=== PATIENT | male | born 1965 | race Caucasian/White ===

== ENCOUNTER 2018-03-10 20:52 | Inpatient (IN) | payer OTHER ==
[~2018-03-10] VITALS: Ht 175.3 cm; Wt 110.7 kg
--- NOTE | 2018-03-10 21:02 | ED GI/GU/ABDOMINAL COMPLAINT ---
History of Present Illness General Chief Complaint: Abdominal Pain/Flank Pain Stated Complaint: UPPER ABD PAIN Source: patient Exam Limitations: no limitations Vital Signs & Intake/Output Vital Signs & Intake/Output Vital Signs Date Time Temp Pulse Resp B/P B/P Pulse O2 O2 Flow FiO2 Mean Ox Delivery Rate 03/11 2113 97.7 89 16 125/76 03/11 2018 97.7 89 125/76 03/11 1954 97.7 89 16 121/71 03/11 1947 97.7 89 121/71 03/11 1810 70 137/81 03/11 1247 96.9 70 135/84 03/11 1057 98.4 92 16 105/55 96 03/11 1053 98.4 86 20 158/96 96 03/11 0851 98.7 65 18 114/68 96 ED Intake and Output 03/12 0000 03/11 1200 Intake Total Output Total Balance Patient 244 lb Weight Allergies Coded Allergies: No Known Allergies (03/10/18) Reconcile Medications Aspirin (Ecotrin*) 81 MG TABLET.DR 1 TAB PO QAM HEART/BLOOD (Reported) Atenolol 50 MG TABLET 1 TAB PO QHS BP (Reported) Atorvastatin Calcium (Lipitor) 40 MG TABLET 1 TAB PO QPM CHOLESTEROL ( Reported) Clonazepam 1 MG TABLET 1 TAB PO BID ANXIETY (Reported) Fluoxetine HCl 40 MG CAPSULE 2 CAP PO QAM MENTAL HEALTH (Reported) Gabapentin 600 MG TABLET 1 TAB PO TID NERVE PAIN (Reported) Levothyroxine Sodium (Levoxyl) 50 MCG TABLET 1 TAB PO DAILY AC THYROID ( Reported) Metformin HCl 500 MG TABLET 1 TAB PO QAM DM (Reported) Prazosin HCl 2 MG CAPSULE 2 CAP PO QHS MENTAL HEALTH (Reported) Quetiapine Fumarate (Seroquel) 400 MG TABLET 2 TAB PO QHS MENTAL HEALTH ( Reported) Temazepam (Restoril) 30 MG CAPSULE 1 CAP PO QHS SLEEP (Reported) Triage Note: PT BIBA FROM HOME WITH C/O 9/10 MID UPPER ABD PAIN THAT STARTED 3 DAYS AGO AND HAS GOTTEN PROGRESSIVELY WORSE. SAW PCP FOR THE PAIN 2 DAYS AGO AND HAS BEEN TAKING TRAMADOL SINCE THEN WITH REPORTED NO EFFECT. PAIN GOT WORSE TODAY, PCP ADVISED HIM TO COME TO ED. REPROTS NAUSEA, NO VOMITING. DENEIS CP/SOB. DENIES CARDIAC HX. Triage Nurses Notes Reviewed? yes Onset: Gradual Duration: day(s): Timing: recent history Quality/Severity: severe Severity Numbers: 8 Location: left upper quadrant HPI: 52 y/o male with hx of anxiety, depression, HTN presents to the ED with complaints of abdominal pain since Wednesday. Pt states he ate salmon Wednesday night and went to his PCP Wednesday with thoughts of having possible food poisoning. Pt states the PCP gave him 20mg of Tramadol to take and said if the pain does not subside in a few days to then go to the ED. Pt states the pain is localized to the LUQ region and describes it as a sharp pain rating it at a 8/10 to sometimes even 10/10 on pain scale. There is no position that makes the pain better or worse. He states the pain has progressively been getting worse, even with prescription strength ibuprofen and tramadol. Pt also admits to having a "coca cola" colored urine this morning and a black looking stool. He has never had either of these symptoms before. Pt also states his girlfriend about 6 months ago and he has been having suicidal ideation ever since. He does admit that he has thought of a plan a few times but never went through with it. He denies any homicidal ideations or drug/alcohol use. Associated GI symptoms are N/D, low back pain, and 35 lb weight loss since November due to his new low carb diet. Pt denies dysuria, polyuria, constipation, CP, SOB, fever, chills, fatigue, or pain elsewhere. (Ne Asher) Past History Travel History Traveled to [place] past 21 day No Medical History Any Pertinent Medical History? 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 No (eN Asher) Review of Systems Review of Systems Constitutional: Reports: no symptoms. EENTM: Reports: no symptoms. Respiratory: Reports: no symptoms. Cardiovascular: Reports: no symptoms. GI: Reports: see HPI. Genitourinary: Reports: see HPI. Musculoskeletal: Reports: no symptoms. Skin: Reports: no symptoms. Neurological/Psychological: Reports: see HPI. Hematologic/Endocrine: Reports: no symptoms. Immunologic/Allergic: Reports: no symptoms. All Other Systems: Reviewed and Negative (Natalya [place],Ne Santiago) Physical Exam Physical Exam General Appearance: well developed/nourished, no apparent distress, alert, awake Head: atraumatic, normal appearance Eyes: Bilateral: normal appearance. Ears, Nose, Throat, Mouth: hearing grossly normal Neck: normal inspection, supple, full range of motion Respiratory: normal breath sounds, no respiratory distress, lungs clear Cardiovascular: regular rate/rhythm Gastrointestinal: normal bowel sounds, soft, no organomegaly, LUQ/epigastric tenderness Back: normal inspection, normal range of motion Extremities: normal range of motion Neurologic/Psych: awake, alert, oriented x 3 Skin: intact, normal color, warm/dry Core Measures ACS in differential dx? No Sepsis Present: No Sepsis Focused Exam Completed? No (Ne Asher) Progress Differential Diagnosis: bowel obstruction, diverticulitis, gastritis, hernia, inflamm bowel dis, pancreatitis, peptic ulcer, PUD/GERD, SBO, ureterolithiasis, UTI/pyelo, depression, suicidal ideation Plan of Care: Orders Procedure Date/time Status Regular Diet 03/12 B Active THYROID STIMULATING HORMONE 03/12 0600 Active THYROXINE 03/12 0600 Active LIPID PANEL 03/12 0600 Active GLYCOSYLATED HGB 03/12 0600 Active FREE T4 03/12 0600 Active Regular Diet 03/11 D Complete Patient Data - inpatient psych 03/11 1634 Active Admit to inpatient psych 03/11 1634 Active Vital Signs 03/11 1237 Active Inpt Psych Teach/Educate 03/11 1237 Active Nutritional Intake, Monitor 03/11 1237 Active Inpt Psych Auricular Acupunctu 03/11 1237 Active Admit to inpatient psych 03/11 1121 Active ED Holding Orders 03/11 1121 Active Code Status 03/11 1121 Active INIT HSP (30 MIN) 03/11 UNK Complete CIWA 03/11 UNK Active Activity/Ambulation 03/11 UNK Active Intake & Output 03/10 8917 Complete Current Medications Sig/Hillary Start time Last Medication Dose Stop Time Status Admin Clonazepam 1 MG 0800,1400 03/12 0800 AC (Klonopin 1MG Tab) 03/19 0759 Gabapentin 600 MG TID 03/11 2100 AC 03/11 (Neurontin) 2112 Prazosin HCl 4 MG AT BEDTIME 03/11 (Minipress 2 Mg.) 2112 Atenolol 50 MG 03/11 (Tenormin) 1953 Quetiapine Fumarate 800 MG 03/11 (Seroquel) 1951 Atorvastatin Calcium 40 MG 03/11 17003/11 (Lipitor) 172 Metformin HCl 500 MG 0800,03/11 17003/11 (Glucophage) 172 Lorazepam 2 MG Q1 NEEDED PRN 03/11 164 AC (Ativan) Lorazepam 1 MG Q1 NEEDED PRN 03/11 164 AC (Ativan) Levothyroxine Sodium 0.05 MG DAILY AC 03/11 0958 AC 03/12 (Synthroid) 0617 Aspirin 81 MG DAILY 03/11 0951 AC 03/11 (Aspirin) 1020 Famotidine 20 MG DAILY 03/11 0950 AC 03/11 (Pepcid) 1020 Fluoxetine HCl 80 MG DAILY 03/11 0950 AC 03/11 (Prozac) 1020 Laboratory Tests 03/12/18 0620: Hemoglobin A1c Pending, Triglycerides Pending, Cholesterol Pending, LDL Cholesterol, Calc Pending, HDL Cholesterol Pending, Cholesterol/HDL Ratio Pending, TSH Pending, Free T4 Pending, Thyroxine (T4) Pending 03/11/18 1634: Free T4 Cancelled No abnormal findings on patient CT scan to explain patient's left upper quadrant abdominal pain. Patient's labs are stable, H/H is stable, mild leukocytosis. Lipase is within normal limits, no acute pancreatitis. No evidence of UTI. Patient will likely require GI follow-up regarding his persistent pain. The patient was signed out to Dr. Oreilly pending crisis evaluation and disposition. Diagnostic Imaging: Viewed by Me: CT Scan. Discussed w/RAD: CT Scan. Radiology Impression: PATIENT: QAMAR ONOFRE PRESENT AGE: 52 PATIENT ACCOUNT NO: [id number] : 63 LOCATION: [facility] ORDERING PHYSICIAN: Ne [place] SERVICE DATE: 03/10/18 EXAM TYPE: CAT - CT ABD & PELVIS W IV CONTRAST EXAMINATION: CT ABDOMEN AND PELVIS WITH CONTRAST CLINICAL INFORMATION: Left lower quadrant pain. CVA tenderness. COMPARISON: None TECHNIQUE: Multidetector volumetric imaging was performed of the abdomen and pelvis following IV administration of 95 mL of Optiray 320 intravenous contrast. Sagittal and coronal reformatted images were obtained on the technologist's workstation. DLP: 1047.46 mGy-cm FINDINGS: LUNG BASES: The visualized lung bases are unremarkable. LIVER, GALLBLADDER, AND BILIARY TREE: The liver is normal in size, shape, and attenuation. No focal hepatic lesion or biliary ductal dilatation is present. The gallbladder is unremarkable with no evidence of radiopaque gallstones, gallbladder wall thickening, or obvious pericholecystic inflammatory changes. PANCREAS: Unremarkable. SPLEEN: Unremarkable. ADRENAL GLANDS: Unremarkable. KIDNEYS AND URETERS: The kidneys are normal in size, shape , and attenuation. No hydronephrosis, hydroureter, or calculi seen. No perinephric stranding. BLADDER: Unremarkable. GASTROINTESTINAL TRACT: The small and large bowel are unremarkable. The appendix is surgically absent. Mesentery: There is slight haziness of the mid mesentery. This could be chronic or related to mesenteritis but there is no lymphadenopathy. No inflammation. No free fluid. No free air. ABDOMINAL WALL: No significant hernia is appreciated. LYMPH NODES: Normal. VASCULAR: Unremarkable. PELVIC VISCERA: Unremarkable. OSSEOUS STRUCTURES : Unremarkable. There is linear soft tissue ossification along the fascial plane superficial to the right buttocks and adjacent to the left inferior sacroiliac joint. This is consistent with a chronic change. There is no mass or inflammation. IMPRESSION: No acute abnormality CT scan abdomen and pelvis. DICTATED BY: Herrera Mendenhall MD DATE/TIME DICTATED:03/10/182321 [facility] HOSPITALIST :FRANCO DATE/TIME TRANSCRIBED:03/10/182321 CONFIDENTIAL, DO NOT COPY WITHOUT APPROPRIATE AUTHORIZATION. <Electronically signed in Other Vendor System> SIGNED BY: Herrera Mendenhall MD 03/10/182331 Initial ED EKG: sinus rhythm @79bpm,PAC, nonspecific ST changes Hand-Off Endorsed To: Ziyad Oreilly MD Endorsed Time: 0100 Pending: consult (crisis) (Natalya [place],Ne Santiago) Hand-Off Endorsed To: Mario Bojorquez MD Endorsed Time: 0700 Pending: consult (Ziyad Oreilly MD) Comments: 03/11 1100 52-year-old male presents with abdominal pain. Workup is negative. The patient had a soft benign abdomen, nontender. He is requesting crisis counselor who have seen the patient. Presentation consistent with ACS or cardiopulmonary pathology. (Víctor LASSITER,[facility]) Departure Departure Disposition: STILL A PATIENT Condition: Stable Clinical Impression Primary Impression: Abdominal pain Qualifiers: Abdominal location: left upper quadrant Qualified Code: R10.12 - Left upper quadrant pain Secondary Impressions: Depression Qualifiers: Depression Type: unspecified Qualified Code: F32.9 - Major depressive disorder, single episode, unspecified Suicidal ideation Departure Forms: Customer Survey General Discharge Information (Natalya [place],Ne Santiago) Psych Admission Note Psychiatric Admission: I have seen and evaluated QAMAR ONOFRE. I have also reviewed all the pertinent lab results and diagnostic results. QAMAR ONOFRE will be admitted to our inpatient Psychiatric unit for treatment and care. PA/HEALTHCARE MANAGEMENT CONSULTANT Co-Sign Statement Statement: ED Attending supervision documentation- x I saw and evaluated the patient. I have also reviewed all the pertinent lab results and diagnostic results. I agree with the findings and the plan of care as documented in the PA's/HEALTHCARE MANAGEMENT CONSULTANT's documentation. [] I have reviewed the ED Record and agree with the PA's/HEALTHCARE MANAGEMENT CONSULTANT's documentation. [] Additions or exceptions (if any) to the PAs/HEALTHCARE MANAGEMENT CONSULTANT's note and plan are summarized below: [] (Ziyad Oreilly MD) PA/HEALTHCARE MANAGEMENT CONSULTANT Co-Sign Statement Statement: ED Attending supervision documentation- [] I saw and evaluated the patient. I have also reviewed all the pertinent lab results and diagnostic results. I agree with the findings and the plan of care as documented in the PA's/HEALTHCARE MANAGEMENT CONSULTANT's documentation. [x] I have reviewed the ED Record and agree with the PA's/HEALTHCARE MANAGEMENT CONSULTANT's documentation. [] Additions or exceptions (if any) to the PAs/HEALTHCARE MANAGEMENT CONSULTANT's note and plan are summarized below: [] (Reno LASSITER,Mario Wells) (Reno LASSITER,Mario Wells)
[2018-03-10 21:51] LABS: ABSOLUTE BASOPHIL COUNT 0 /CUMM (0.0-0.2); ABSOLUTE EOSINOPHIL COUNT 0.1 /CUMM (0.0-0.7); ABSOLUTE GRANULOCYTE CT 5.7 /CUMM (1.4-6.5); ABSOLUTE LYMPH COUNT 2.5 /CUMM (1.2-3.4); ABSOLUTE MONOCYTE COUNT 0.5 /CUMM (0.10-0.60); BASOPHIL % 0.5 % (0.0-2.0); EOSINOPHIL % 1.6 % (0-5); HEMATOCRIT 39.8 % (42-52); MEAN CORPUSCULAR HGB 29.1 PG (27.0-31.0); MEAN CORPUSCULAR HGB CONC 32.9 G/DL (33.0-37.0); MEAN CORPUSCULAR VOLUME 88.4 FL (80.0-94.0); MEAN PLATELET VOLUME 9.1 FL (7.4-10.4); PLATELET COUNT 201 /CUMM (130-400); RBC DISTRIBUTION WIDTH 12.9 % (11.5-14.5); RED BLOOD CELL CT 4.51 /CUMM (4.70-6.10); WHITE BLOOD CELL COUNT 8.9 /CUMM (4.8-10.8)
[2018-03-10] MEDS ORDERED: SEROQUEL400 M1 PO (22:35)
[2018-03-10] MEDS ORDERED: PRAZOSIN HCL2 M1 PO (22:36)
[2018-03-10] MEDS ORDERED: ATENOLOL50 M1 PO (22:36)
[2018-03-10] MEDS ORDERED: RESTORIL30 M1 PO (22:36)
[2018-03-10] MEDS ORDERED: CLONAZEPAM1 M2 PO (22:36)
[2018-03-10] MEDS ORDERED: LEVOXYL50 MCG PO (22:37)
[2018-03-10] MEDS ORDERED: GABAPENTIN600 M1 PO (22:37)
[2018-03-10] MEDS ORDERED: FLUOXETINE HCL40 M1 PO (22:37)
[2018-03-10] MEDS ORDERED: LIPITOR40 M1 PO (22:38)
[2018-03-10] MEDS ORDERED: METFORMIN HCL500 M3 PO (22:38)
[2018-03-10] MEDS ORDERED: ASPIRIN EC81 M1 PO (22:38)
--- NOTE | 2018-03-10 23:32 | CT SCAN REPORT ---
EXAMINATION: CT ABDOMEN AND PELVIS WITH CONTRAST CLINICAL INFORMATION: Left lower quadrant pain. CVA tenderness. COMPARISON: None TECHNIQUE: Multidetector volumetric imaging was performed of the abdomen and pelvis following IV administration of 95 mL of Optiray 320 intravenous contrast. Sagittal and coronal reformatted images were obtained on the technologist's workstation. DLP: 1047.46 mGy-cm FINDINGS: LUNG BASES: The visualized lung bases are unremarkable. LIVER, GALLBLADDER, AND BILIARY TREE: The liver is normal in size, shape, and attenuation. No focal hepatic lesion or biliary ductal dilatation is present. The gallbladder is unremarkable with no evidence of radiopaque gallstones, gallbladder wall thickening, or obvious pericholecystic inflammatory changes. PANCREAS: Unremarkable. SPLEEN: Unremarkable. ADRENAL GLANDS: Unremarkable. KIDNEYS AND URETERS: The kidneys are normal in size, shape, and attenuation. No hydronephrosis, hydroureter, or calculi seen. No perinephric stranding. BLADDER: Unremarkable. GASTROINTESTINAL TRACT: The small and large bowel are unremarkable. The appendix is surgically absent. Mesentery: There is slight haziness of the mid mesentery. This could be chronic or related to mesenteritis but there is no lymphadenopathy. No inflammation. No free fluid. No free air. ABDOMINAL WALL: No significant hernia is appreciated. LYMPH NODES: Normal. VASCULAR: Unremarkable. PELVIC VISCERA: Unremarkable. OSSEOUS STRUCTURES: Unremarkable. There is linear soft tissue ossification along the fascial plane superficial to the right buttocks and adjacent to the left inferior sacroiliac joint. This is consistent with a chronic change. There is no mass or inflammation. IMPRESSION: No acute abnormality CT scan abdomen and pelvis.
--- NOTE | 2018-03-11 09:51 | ED PSYCH CRISIS CONSULTATION ---
Crisis Consult Basic Assessment Date of Consult: 03/11/18 Responsible Person/Accompanied By: self Insurance Authorization: Insurance #1: [facility] Phone number: Policy number: [id number] Group number: Authorization number: ED Provider: Patient's ED Provider: Ne Asher Primary Care Physician: Patient's PCP: Magdiel Chino MD PCP's Current Psychiatrist: [facility] Chief Complaint: Psychiatric Related Complaint Patient's Quote: "I recently lost my gf of 7 years suddenly" Present Illness: Pt is a 52 year old single domiciled male self presenting to the ED initially with abdominal pain and then reported SI to ED staff. Pt states he recently (9 months ago) lost his girlfriend of 7 years after she from complications related to pneuomia. He states she was on life support and within 1 week of being diagnosed with pneumonia. Pt states he and his gf were living in [place] together and he moved up here 6 months ago to be with her family and her ashes, which are burried here in [place]. He states has been hospitalized 2x psychiatrically after his gf (1x in [place] and most recently at [facility] 1 month ago). His discharge plan from [facility] was [place]'s [facility]. Pt states he attended IOP for the 1st time on Wednesday. He does not think going to [place] by bus is reasonable for him as he takes the bus. He states he took him 3 hours to get to [place] from [place] by bus , IOP lasts 3 hours, then another 3 hours to get back home. He states this is exhausting and too much for anyone to have to do to get treatment. Currently, pt states he thinks about suicide daily over the last month. He reports he wants to be to be with his girlfriend. He has thought about drinking a bottle of tequila to pass out, stepping in front of a train, and tying belts to a ceiling fan to hang himself. It is unclear what prevents him from acting on these thoughts. He did mention that he finds comfort at [facility]. He was going to [facility] 3-4 times per week but this [facility] is now closed for 2 months for renovations. He is socially isolated- he lives alone, no longer attends [facility] and doesn't want to "bother" his girlfriend's family. He thinks that since one of the girlfriend's famiy members gave him an apartment to live in for free, he shouldn't be asking for any more help. Pt has a long psychiatric history recieving treatment in [place] and [place] prior to living in [place]. Pt had prior substance abuse issues with Alcohol and no longer has issues with alochol at this time. Last drink was Mother's day- 1 glass of wine. Crisis consulted with Dr. Mercedes, distribution operations manager psychiatrist. Pt is being admitted to [facility] voluntarily for SI and the inability to create a safety plan outside the hospital. Patient's Address: [address] [place] [address] Other Phone Number: Who Do You Live With? Patient/Self Family/Informants Interviewed: no family/collateral ID'd Allergies - Coded Allergies: No Known Allergies (03/10/18) Current Medications - Scheduled Medications Aspirin (Ecotrin*) 81 MG TABLET.DR 1 TAB PO QAM HEART/BLOOD (Reported) Entered as Reported by Yenifer Plascencia on 03/10/182237 Atenolol 50 MG TABLET 1 TAB PO QHS BP (Reported) Entered as Reported by Yenifer Plascencia on 03/10/182235 Atorvastatin Calcium (Lipitor) 40 MG TABLET 1 TAB PO QPM CHOLESTEROL ( Reported) Entered as Reported by Yenifer Plascencia on 03/10/182237 Clonazepam 1 MG TABLET 1 TAB PO BID ANXIETY (Reported) Entered as Reported by Yenifer Plascencia on 03/10/182235 Fluoxetine HCl 40 MG CAPSULE 2 CAP PO QAM MENTAL HEALTH (Reported) Entered as Reported by Yenifer Plascencia on 03/10/182236 Gabapentin 600 MG TABLET 1 TAB PO TID NERVE PAIN (Reported) Entered as Reported by Yenifer Plascencia on 03/10/182236 Levothyroxine Sodium (Levoxyl) 50 MCG TABLET 1 TAB PO DAILY AC THYROID ( Reported) Entered as Reported by Yenifer Plascencia on 03/10/182236 Metformin HCl 500 MG TABLET 1 TAB PO QAM DM (Reported) Entered as Reported by Yenifer Plascencia on 03/10/182237 Prazosin HCl 2 MG CAPSULE 2 CAP PO QHS MENTAL HEALTH (Reported) Entered as Reported by Yenifer Plascencia on 03/10/182235 Quetiapine Fumarate (Seroquel) 400 MG TABLET 2 TAB PO QHS MENTAL HEALTH ( Reported) Entered as Reported by Yenifer Plascencia on 03/10/182234 Temazepam (Restoril) 30 MG CAPSULE 1 CAP PO QHS SLEEP (Reported) Entered as Reported by Yenifer Plascencia on 03/10/182235 Laboratory Results: Laboratory Tests 03/10/18 2357: Lactic Acid Cancelled 03/10/18 224: Urine Opiates Screen < 100, Methadone Screen 45, Barbiturate Screen < 60, Ur Phencyclidine Scrn < 6.00, Amphetamines Screen < 100, U Benzodiazepines Scrn 146 , Urine Cocaine Screen < 50, Urine Cannabis Screen < 5.00, Urine Color YEL, Urine Clarity CLEAR, Urine pH 6.0, Ur Specific [place] 1.025, Urine Protein NEG, Urine Ketones NEG, Urine Nitrite NEG, Urine Bilirubin NEG, Urine Urobilinogen 0.2, Ur Leukocyte Esterase NEG, Ur Microscopic EXAM NOT REQUIRED, Urine Hemoglobin NEG, Urine Glucose NEG 03/10/18 2140: Anion Gap 12, Estimated GFR > 60, BUN/Creatinine Ratio 22.5, Glucose 105 H, Lactic Acid 1.0, Calcium 9.9, Total Bilirubin 0.3, AST 23, ALT 33, Alkaline Phosphatase 74, Troponin I < 0.01, Total Protein 7.4, Albumin 4.3, Globulin 3.1, Albumin/Globulin Ratio 1.4, Lipase 232, CBC w Diff NO MAN DIFF REQ, RBC 4.51 L, MCV 88.4, MCH 29.1, MCHC 32.9 L, RDW 12.9, MPV 9.1, Gran % 64.0, Lymphocytes % 27.7, Monocytes % 6.2, Eosinophils % 1.6, Basophils % 0.5, Absolute Granulocytes 5.7, Absolute Lymphocytes 2.5, Absolute Monocytes 0.5, Absolute Eosinophils 0.1, Absolute Basophils 0, Serum Alcohol < 10.0 03/10/182134: Serum Alcohol Cancelled Past History Past Medical History Neurological: NEUROPATHY EENT: NONE Cardiovascular: hypertension, hyperlipidemia Respiratory: NONE Gastrointestinal: NONE Hepatic: NONE Renal: NONE Musculoskeletal: NONE Psychiatric: depression, OCD, per pt, PTSD, per pt Endocrine: hypothyroidism Blood Disorders: NONE Cancer(s): NONE 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 Physical Limitations (Interventions): none Psychiatric Treatment History Psych Treatment Psychiatric Treatment Yes Inpatient Treatment Yes Outpatient Treatment Yes Location of Treatment - [facility]; [facility] - [place] started 03/09 Reason for Treatment SI, Depression Dates of Treatment [facility]- 1 month ago, started IOP Wednesday Response to Treatment fair, pt states the distance is too far to continue with his current IOP in [place] Diagnosis by History: Depression OCD PTSD Alcohol Use Disorder Substance Use/Abuse History Drug Use/Abuse 1 Substances Used/Abused Yes Substance Used/Abused Alcohol First Use 12 Last Used December 2017 How much used/taken 1 glass of wine How often not very often For how long pt used to have a problem w/ ETOH Route of use oral Drug Use/Abuse 2 Substances Used/Abused Yes Substance Used/Abused Nicotine Last Used 03/10/18 How much used/taken 4-5 cigarettes per day How often daily For how long years on and off Route of use inhalation Drug Use/Abuse 3 Substances Used/Abused Yes Substance Used/Abused Cocaine Last Used late 20s Drug Use/Abuse 4 Substances Used/Abused Yes Substance Used/Abused Prescribed Opiates Last Used 6 years ago For how long pt reports he had an issue with prescribed opiates 6 year ago Substance Abuse Treatment Substance Abuse Treatment Past Substance Abuse TX Yes Inpatient Treatment Yes Outpatient Treatment Yes Location of Treatment [place] Reason for Treatment etoh abuse Dates of Treatment years ago Response to Treatment Pt reports he did well because it was a residential IOP then he transferred to a [facility] for 6 months then went to sober living Current Mental Status Mental Status Orientation: Person, Place, Situation Affect: Sad Speech: WNL Neuro-vegetative: Anhedonia, Appetite Decreased, Concentration Poor, Energy Decreased, Helpless, Sleep Disturbance Appearance Appearance- Dress/Hygiene: Pt presents in hospital scrubs Pt pointed out scars on his elbows from 6 previous surgeries for nueropathy Behaviors Thought Process: WNL Thought Content: WNL Memory: WNL Insight: Fair SI/HI Risk Assessment Past Suicidal Ideation/Attempts Yes Current Suicidal Ideation/Att Yes Past Homicidal Ideation/Att: No Current Homicidal Ideation/Attempts No Degree of Intent: Thoughts/No Intent Danger To: Self Risk Factors: SA/MH hospitalized, lives alone, male, limited support Lethality Ratin PTSD Checklist PTSD Done? patient declined ED Management Sitter: Yes Restraints: No DSM5/PS Stressors/Medical Prob Diagnosis' (DSM 5, Stressors, Medical): F32.9 Unspecified Depressive Disorder OCD, per patient PTSD, per patient Stressors: girlfriend 9 months ago, unemployed on disability Medical: Hypertension, hyperlipimedia Current GAF: 22 Departure Disposition Psych Medical Clearance Date: 03/11/18 Medically Cleared at: 0810 Time Started: 0810 Time Ended: 0840 Psychiatrist Consulted: Roma Mercedes MD Date Disposition Established: 03/11/18 Time Disposition Established: 1030 Plan for Disposition - Modality: Inpatient Psychiatry Facility: [facility] Rationale for Disposition: Pt presents with SI- plans to overdose with tequila, jump in front of a train or hang himself with belts from a ceiling fan in his living room. Pt is unable to contract for safety. Type of IP Admission: Voluntary Referrals Magdiel Chino MD (PCP/Family)
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
[2018-03-11 12:47] VITALS: BP 135/84
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
--- NOTE | 2018-03-11 14:01 | CPS PROVIDER INIT ASMT PSYCH ---
Psychiatric Admission Special Police Officer's Note Reviewed: Yes Patient Seen and Examined: Yes Identifying Information: Patient is a 52-year-old single white male. Chief Complaint: "I recently lost my girlfriend of 7 years suddenly." Reaction to Hospitalization: Patient was admitted voluntarily History of Present Illness Onset of Illness: The patient was admitted to about a month ago and he was discharged from with a plan to attend intensive outpatient program at [place]. The patient reported that he has been doing the intensive outpatient program at [facility]. He has been finding that it has been very demanding and stressful because he has to take the bus from [place] although it to [facility] IOP program he reports that it takes him approximately 3 hours to get to [place] from [place] in the IOP lasts 3 hours then 3 hours to get back home because of the bus schedule. Circumstances Leading to Admission: Increasing depression and thoughts of suicide Problem(s) Justifying Need for Admission: Thoughts of suicide Past Psychiatric History Past Diagnosis(es)- if any: Major depressive disorder, OCD, posttraumatic stress disorder, alcohol use disorder Past Precipitating Factors- if any: Alcohol use and loss of his girlfriend suddenly after a quick illness with pneumonia - Include inpatient and outpatient treatment Treatment History: Patient was receiving the treatment while he was in [place]. Patient moved up from [place] to [place] about 6 months ago. The patient was admitted to about a month ago and that did the intensive outpatient program since. History of Suicide Attempts or Gestures Patient denied Substance Abuse History: History of alcohol use disorder Allergies: Coded Allergies: No Known Allergies (03/10/18) Home Med List: Patient was on 800 mg of Seroquel Aspirin (Ecotrin*) 81 MG TABLET. 1 TAB PO QAM HEART/BLOOD (Reported) Entered as Reported by Yenifer Plascencia on 03/10/182237 Atenolol 50 MG TABLET 1 TAB PO QHS BP (Reported) Entered as Reported by Yenifer Plascencia on 03/10/182235 Atorvastatin Calcium (Lipitor) 40 MG TABLET 1 TAB PO QPM CHOLESTEROL ( Reported) Entered as Reported by Yenifer Plascencia on 03/10/182237 Clonazepam 1 MG TABLET 1 TAB PO BID ANXIETY (Reported) Entered as Reported by Yenifer Plascencia on 03/10/182235 Fluoxetine HCl 40 MG CAPSULE 2 CAP PO QAM MENTAL HEALTH (Reported) Entered as Reported by Yenifer Plascencia on 03/10/182236 Gabapentin 600 MG TABLET 1 TAB PO TID NERVE PAIN (Reported) Entered as Reported by Yenifer Plascencia on 03/10/182236 Levothyroxine Sodium (Levoxyl) 50 MCG TABLET 1 TAB PO DAILY AC THYROID ( Reported) Entered as Reported by Yenifer Plascencia on 03/10/182236 Metformin HCl 500 MG TABLET 1 TAB PO QAM DM (Reported) Entered as Reported by Yenifer Plascencia on 03/10/182237 Prazosin HCl 2 MG CAPSULE 2 CAP PO QHS MENTAL HEALTH (Reported) Entered as Reported by Yenifer Plascencia on 03/10/182235 Quetiapine Fumarate (Seroquel) 400 MG TABLET 2 TAB PO QHS MENTAL HEALTH ( Reported) Entered as Reported by Yenifer Plascencia on 03/10/182234 Temazepam (Restoril) 30 MG CAPSULE 1 CAP PO QHS SLEEP - Include any medical condition(s) that may - impact the patient's recovery/remission Past Medical History: He sees he said he has borderline diabetes. He has hypothyroidism Past History Medical History Neurological: NEUROPATHY EENT: NONE Cardiovascular: hypertension, hyperlipidemia Respiratory: NONE Gastrointestinal: NONE Hepatic: NONE Renal: NONE Musculoskeletal: chronic back pain, disk herniation Psychiatric: depression, insomnia, substance abuse, OCD, per pt PTSD, per pt Endocrine: hypothyroidism, BORDERLINE DM 2 Blood Disorders: NONE Cancer(s): NONE PLASTICS NURSE/Reproductive: NONE History of MRSA: No History of VRE: No History of CDIFF: No Isolation History: Standard Surgical History Surgical History: appendectomy, cholecystectomy Psychiatric Family/Social Hx Family History Psychiatric Illness: Unexplored Substance Use: unexplored Suicides: unexplored Social History Living Situation: Please see the biopsychosocial assessment by MANAGER RECRUITMENT Significant Relationships (family/friends): Please see the biopsychosocial assessment by MANAGER RECRUITMENT Education: Please see the biopsychosocial assessment by MANAGER RECRUITMENT Vocation/Occupation: Please see the biopsychosocial assessment by MANAGER RECRUITMENT Legal: Please see the biopsychosocial assessment by MANAGER RECRUITMENT Healthly Behaviors Screening Tobacco Screening Tobacco Use from ED Docu: Current Not Daily - If tobacco counseling indicated - the following topics are required. - #1 Recognizing dangerous situations. - #2 Coping Skills. - #3 Basic information about quitting. Status of Tobacco Cessation Counseling: #1, #2 AND #3 Completed Cessation Med Status Nicotine Gum Ordered Alcohol Screening - ETOH screen POS if BAL >=80 or Audit-C>= M4/F3 Audit-C Score from Diag Assess: 1 Blood Alcohol Level: Laboratory Tests 03/10 03/10 2135 2140 Toxicology Serum Alcohol (<10 MG/DL) Cancelled < 10.0 Alcohol Use Screening Results: Neg per Audit C &/or BAL - If ETOH counseling indicated - the following topics are required. - #1 Express concern about the patient's - drinking at unhealthy levels, include informing - of national norms for moderate drinking: - men <= 14 drinks/week, max 4 drinks/occasion - women <= 7 drinks/week, max 3 drinks/occasion - #2 Providing feedback, including linking alcohol to - negative physical effects (liver injury, hypertension) - negative emotional effects (relationship problems and - depression) - negative occupational consequences (reduced work - performance) - #3 Advising the patient to abstain from alcohol or - to drink below national norms for moderate drinking - (as listed above). Status of ETOH Use Counseling: N/A B/C NO ETOH Use Metabolic Screening - Screen if on a Neuroleptic Medication - Metabolic screening should include: - Blood Pressure, BMI, Glucose or Hgb A1c, & a - Lipid profile from within the past 365 days. Metabolic Screening Patient on a neuroleptic(s) . Enter below results for Hemoglobin A1C, and lipid panel if obtained during the last 365 days. BMI: 36.000 Blood Pressure: 135/84 Laboratory Results From [facility] (If applicable): Lab work ordered Exam and Plan Mental Status Examination Ambulation Status: Steady gait Appearance: Unremarkable appearance Attitude towards examiner: , Cooperative Psychomotor activity: Normal psychomotor activity Behavior: No abnormal behaviors Quality of speech: Normal speech, not pressured, not slurred Affect: Constricted affect Mood: Reported mood is depressed Suicidal Ideation: Reported on and off thoughts of suicide Homicidal Ideation: Denied thoughts of violence or homicide Hallucinations: Denied hallucinations Paranoid/Delusional Material: Denied feeling paranoid, there were no delusions Difficulties with thought organization: Denied difficulties with thought organization Insight: Seems to have partial insight Judgment: Seems to have reasonable judgment in hypothetical situations Orientation: He was alert and oriented to time, place, and person. Cognition: Did not seem to have difficulties with information processing. Memory Function: Did not have any difficulties with short-term memory. Estimate of intellectual functioning: Average Assets/Strengths Patient Identified Assets/Strengths: Patient is intelligent, motivated, and has supportive family Impression/Plan Impression and Plan: 52-year-old single white male who was admitted because of increasing depression and thoughts of suicide. - Include all active medical diagnosis that require tx DSM 5 Diagnosis(es): Unspecified depressive disorder Obsessive-compulsive disorder Posttraumatic stress disorder Alcohol use disorder - Initial Tx Plan for Active Psych & Medical Conditions Treatment Plan: Inpatient psychiatric care with safety checks every 15 minutes Resume all medications as per his outpatient providers at [facility] intensive outpatient program. - Factors that would help patient function - in a less restrictive setting. Factors: The patient will be discharge if he has 2 consecutive days without any thoughts of suicide
[2018-03-11 18:10] VITALS: BP 137/81
--- NOTE | 2018-03-11 19:05 | History & Physical ---
General Information and HPI MD Statement: I have seen and personally examined QAMAR ONOFRE and documented this H&P. The patient is a 52 year old M who presented with a patient stated chief complaint of "I recently lost my girlfriend of 7 years suddenly". Source of Information: patient Exam Limitations: no limitations History of Present Illness: 52 year old male came to the emergency room initially complaining of abdominal pain (work up was negative) and then reported SI to the ED staff. He has been hospitalized twice in [facility]. after the girl friend one in [place] one in [facility], one month ago went to [facility]. Patient thinks about suicide every day, feels socally isolated. Allergies/Medications Allergies: Coded Allergies: No Known Allergies (03/10/18) Home Med list Aspirin (Ecotrin*) 81 MG TABLET.DR 1 TAB PO QAM HEART/BLOOD (Reported) Atenolol 50 MG TABLET 1 TAB PO QHS BP (Reported) Atorvastatin Calcium (Lipitor) 40 MG TABLET 1 TAB PO QPM CHOLESTEROL ( Reported) Clonazepam 1 MG TABLET 1 TAB PO BID ANXIETY (Reported) Fluoxetine HCl 40 MG CAPSULE 2 CAP PO QAM MENTAL HEALTH (Reported) Gabapentin 600 MG TABLET 1 TAB PO TID NERVE PAIN (Reported) Levothyroxine Sodium (Levoxyl) 50 MCG TABLET 1 TAB PO DAILY AC THYROID ( Reported) Metformin HCl 500 MG TABLET 1 TAB PO QAM DM (Reported) Prazosin HCl 2 MG CAPSULE 2 CAP PO QHS MENTAL HEALTH (Reported) Quetiapine Fumarate (Seroquel) 400 MG TABLET 2 TAB PO QHS MENTAL HEALTH ( Reported) Temazepam (Restoril) 30 MG CAPSULE 1 CAP PO QHS SLEEP (Reported) Compliance With Home Meds: UNKNOWN Past History Travel History Traveled to [place] past 21 day No Medical History Neurological: NEUROPATHY EENT: NONE Cardiovascular: hypertension, hyperlipidemia Respiratory: NONE Gastrointestinal: NONE Hepatic: NONE Renal: NONE Musculoskeletal: chronic back pain, disk herniation Psychiatric: depression, insomnia, substance abuse, OCD, per pt PTSD, per pt Endocrine: hypothyroidism, BORDERLINE DM 2 Blood Disorders: NONE Cancer(s): NONE BRAKE REPAIR SUPERVISOR/Reproductive: NONE History of MRSA: No History of VRE: No History of CDIFF: No Isolation History: Standard Surgical History Surgical History: appendectomy, cholecystectomy Past Family/Social History Psychosocial History Where do you live? 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 Exam & Diagnostic Data Last 24 Hrs of Vital Signs/I&O Vital Signs Date Time Temp Pulse Resp B/P B/P Pulse O2 O2 Flow FiO2 Mean Ox Delivery Rate 03/11 1810 70 137/81 03/11 1247 96.9 70 135/84 03/11 1057 98.4 92 16 105/55 96 03/11 1053 98.4 86 20 158/96 96 03/11 0851 98.7 65 18 114/68 96 03/11 0611 98.1 69 18 107/71 98 Room Air 03/11 0344 98.0 78 16 116/70 99 Room Air 03/11 0022 97.4 76 18 114/69 98 Room Air 03/10 2257 97.9 74 18 113/70 97 Room Air 03/10 2054 98.4 87 18 141/75 96 Room Air Intake & Output 03/11 1600 03/11 0800 03/11 0000 Intake Total 1000 Output Total 500 Balance 500 Intake, IV 1000 Output, Urine 500 Patient 244 lb 230 lb Weight Weight Reported by Patient Measurement Method Physical Exam General Appearance Alert, Oriented X3, Cooperative, No Acute Distress Skin No Rashes HEENT PERRLA, EOMI Neck Supple, No JVD, No thryomegaly Lymphatic Axillary nl, Cervical nl Cardiovascular Regular Rate, No Murmurs Lungs Clear to Auscultation, Normal Air Movement Abdomen Soft, No Tenderness, No Hepatospenomegaly Neurological Exam Findings: Normal Gait, Normal Speech, Strength at 5/5 X4 Ext, Normal Tone, Sensation Intact, Cranial Nerves 3-12 NL, Reflexes 2+ Cranial Nerves II through XII: intact Extremities No Edema, Normal Pulses, No Tenderness/Swelling Vascular Normal Pulses, Pulses Symmetrical Last 24 Hrs of Labs/Tomas: Laboratory Tests 03/11/18 1634: Free T4 Cancelled 03/10/18 2357: Lactic Acid Cancelled 03/10/18 2242: Urine Opiates Screen < 100, Methadone Screen 45, Barbiturate Screen < 60, Ur Phencyclidine Scrn < 6.00, Amphetamines Screen < 100, U Benzodiazepines Scrn 146 , Urine Cocaine Screen < 50, Urine Cannabis Screen < 5.00, Urine Color YEL, Urine Clarity CLEAR, Urine pH 6.0, Ur Specific [place] 1.025, Urine Protein NEG, Urine Ketones NEG, Urine Nitrite NEG, Urine Bilirubin NEG, Urine Urobilinogen 0.2, Ur Leukocyte Esterase NEG, Ur Microscopic EXAM NOT REQUIRED, Urine Hemoglobin NEG, Urine Glucose NEG 03/10/180: Anion Gap 12, Estimated GFR > 60, BUN/Creatinine Ratio 22.5, Glucose 105 H, Lactic Acid 1.0, Calcium 9.9, Total Bilirubin 0.3, AST 23, ALT 33, Alkaline Phosphatase 74, Troponin I < 0.01, Total Protein 7.4, Albumin 4.3, Globulin 3.1, Albumin/Globulin Ratio 1.4, Lipase 232, CBC w Diff NO MAN DIFF REQ, RBC 4.51 L, MCV 88.4, MCH 29.1, MCHC 32.9 L, RDW 12.9, MPV 9.1, Gran % 64.0, Lymphocytes % 27.7, Monocytes % 6.2, Eosinophils % 1.6, Basophils % 0.5, Absolute Granulocytes 5.7, Absolute Lymphocytes 2.5, Absolute Monocytes 0.5, Absolute Eosinophils 0.1, Absolute Basophils 0, Serum Alcohol < 10.0 03/10/182134: Serum Alcohol Cancelled Diagnostic Data EKG Results sinus rate [address]-T abnormalities Other Results CT scan Abdomen negative. Assessment/Plan As Ranked By This Provider Problem List: 1. Suicidal ideation 2. Depression Qualifiers Depression Type: unspecified Qualified Code: F32.9 - Major depressive disorder, single episode, unspecified 3. Abdominal pain Qualifiers Abdominal location: left upper quadrant Qualified Code: R10.12 - Left upper quadrant pain Miscellaneous Miscellaneous Documentation Attending Case Discussed With: Roma Mercedes MD Primary Care Physician: Magdiel Chino MD Patient sees these Specialists psychiatry Level of Patient Care: [facility] Consults Needed: Consulting Specialty: Psychiatry Consulting Physician: Dr Mercedes Reason for Consult: SI, depression Resident Review Statement Resident Statement: examined this patient Attending Review Statement Attending Statement Attending MD Statement: examined this patient
[2018-03-11 19:47] VITALS: BP 121/71
[2018-03-11 20:18] VITALS: BP 125/76
[2018-03-12] VITALS (7 sets, daily range): BP systolic 100–135; BP diastolic 56–78
--- NOTE | 2018-03-12 12:59 | CP SOUTH PROGRESS NOTE PSYCH ---
Psych (Inpt) Progress Note Progress Note Include the following elements, when applicable: Involvement in the active treatment of the patient with behavioral observations of the patient and the patient's response to the treatment. Review of the ongoing treatment process in the context of the treatment plan. Indication of how multi-disciplinary staff members are carrying out the treatment plan. Plans for future interventions and recommendations for revision of the treatment plan. Liaison with other physicians/providers. Progress Note: pleasant, cooperative. States that he was not doing well since of his girlfriend less than a year ago, that he was not doing well in [facility] due to transportation difficulties. Has some support in his girlfriend's family but not his. Has been sleeping overall well. Stated that he has "too much in my head " still but overall feels safe here when discussing suicide, that he has a lot of triggers outside but feels safe here. MSE: pleasant, overweight man, middle aged, well related and well groomed. His speech is normal. His affect is full and reactive, and his mood is good overall. His thinking is logical. He has depressive thoughts, without any active thoughts to , but doesn't feel safe out in the world at times. He is not psychotic and not hallucinating. His insight is fair and judgment is fair. A: 52 year old man with depressive sx, recent loss of partner, significant alcohol use, appears to be improving clinically. - T4 marginally below cutoff at 4.3, does not appear to merit med change acutely , can follow up with instructor trainer canine service or PCP. - continue current medication doses - provided education/support regarding ongoing weight loss and dietary changes to reduce DM risk.
--- NOTE | 2018-03-12 18:31 | SOCIAL WORKER PROG NOTE PSYCH ---
Social Work Progress Note Progress Note SW met with pt to finish CHLOE social history document. Pt was on the phone with his girlfriend's sister when SW entered the unit. Pt's affect was bright, he denies SI as he reports feeling safe in the hospital, and his mood overall seemed improved since yesterday when he was in the ED. Pt was dressed in his own clothes- bright orange tshirt and shorts as he stated he had packed clothes with him when he came to the ED. Pt states the akira came to visit him today which he appreciated.
[2018-03-13 07:54] VITALS: BP 121/60
[2018-03-13 07:56] VITALS: BP 121/60
--- NOTE | 2018-03-13 09:40 | CP SOUTH PROGRESS NOTE PSYCH ---
Psych (Inpt) Progress Note Progress Note Include the following elements, when applicable: Involvement in the active treatment of the patient with behavioral observations of the patient and the patient's response to the treatment. Review of the ongoing treatment process in the context of the treatment plan. Indication of how multi-disciplinary staff members are carrying out the treatment plan. Plans for future interventions and recommendations for revision of the treatment plan. Liaison with other physicians/providers. Progress Note: pleasant, cooperative. States that he is sleeping better here compared to at home, usually wakes up at 4/5am and has trouble falling back asleep. We discussed limiting coffee/tea/chocolate which he does, no phone before bed and no TV before bed, he appears to be doing reasonably with sleep hygiene. Still has some epigastric pain, chronic constipation - stated that citrate mag is the only thing that helps him, he already received GI cocktail to help with constipation and ineffective. Discussed diet/exercise etc which he states he is doing to improve chronic constipation, risk of terminal clerk constipation on GI system, and to ask his PCP about a GI consult when discharged. X Mood is down, states that he is "very much" depressed, thinks about his girlfriend frequently, wants to be with her but does not have active plans to or harm himself. Explained normal vs pathological bereavement. Discussed looking for bereavement groups. Low energy, low mood - discussed groups at the [facility] and more socialization. MSE: pleasant, overweight man, middle aged, well related and well groomed. His speech is normal. His affect is full and reactive, and his mood is more down today, he appears quieter. His thinking is logical. He has depressive thoughts, with passive thoughts of wanting to be with his girlfriend but no active thoughts. feels safe around people in the milieu here. He is not psychotic and not hallucinating. His insight is fair and judgment is fair. A: 52 year old man with depressive sx, recent loss of partner, alcohol use, with frequent depressive thoughts, passive thoughts of wanting to be with partner, but coping overall well and no behavioral issues on the unit. - continue current medication doses - discussed letting staff know if depressive thoughts become overwhelming, if in the world has plan to harm self to call 911, basic safety planning - T4 marginally below cutoff at 4.3, does not appear to merit med change acutely , can follow up with special education paraeducator or PCP. - citrate mag 1/2 bottle, can repeat 2nd 1/2 if ineffective today for constipation - discussed behavioral activation, sleep hygiene, diet/exercise habits
[2018-03-13 12:05] VITALS: BP 102/55
[2018-03-13 15:38] VITALS: BP 117/62
[2018-03-13 19:49] VITALS: BP 133/72
[2018-03-13 19:54] VITALS: BP 133/72
[2018-03-14 07:48] VITALS: BP 107/70
[2018-03-14 08:19] VITALS: BP 107/70
--- NOTE | 2018-03-14 08:41 | CP SOUTH PROGRESS NOTE PSYCH ---
Psych (Inpt) Progress Note Progress Note I reviewed Dr. Mcfarlane's notes for the weekend (03/12 and 2017). RANGE AID, RN, OTR/L, Group and Activities Therapist, and Psychiatrist discussed the pt.'s progress, inpatient treatment plan, and aftercare plans. Mental status evaluation: The patient was alert and oriented to time, place, and person. He he still claims that he is having thoughts of wishing as well as thoughts of suicide. States that he is sleeping better here compared to at home, usually wakes up at 4/5am and has trouble falling back asleep. Mood is down, states that he is "very much" depressed, thinks about his girlfriend frequently, wants to be with her but does not have active plans to or harm himself. Low energy, low mood -speech is normal. His affect is full and reactive, thinking is logical. He has depressive thoughts, with passive thoughts of wanting to be with his girlfriend but no active thoughts. feels safe around people in the milieu here. He is not psychotic and not hallucinating. Assessment: Paul Castro is a 52 year old man with depressive sx, recent loss of partner, alcohol use, with frequent depressive thoughts, passive thoughts of wanting to be with partner, but coping overall well and no behavioral issues on the unit. Treatment plan update: Reduce Seroquel to 700 mg at bedtime Continue all other medications unchanged. active thoughts. feels safe around people in the milieu here. He is not psychotic and not hallucinating. His insight is fair and judgment is fair. A: 52 year old man with depressive sx, recent loss of partner, alcohol use, with frequent depressive thoughts, passive thoughts of wanting to be with partner, but coping overall well and no behavioral issues on the unit. - continue current medication doses - discussed letting staff know if depressive thoughts become overwhelming, if in the world has plan to harm self to call 911, basic safety planning - T4 marginally below cutoff at 4.3, does not appear to merit med change acutely , can follow up with commercial account manager or PCP. - citrate mag 1/2 bottle, can repeat 2nd 1/2 if ineffective today for constipation - discussed behavioral activation, sleep hygiene, diet/exercise habits
[2018-03-14 12:10] VITALS: BP 110/68
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
[2018-03-14 15:56] VITALS: BP 138/76
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
[2018-03-14 19:41] VITALS: BP 129/73
[2018-03-15 07:40] VITALS: BP 116/71
[2018-03-15 08:02] VITALS: BP 116/71
--- NOTE | 2018-03-15 09:11 | CP SOUTH PROGRESS NOTE PSYCH ---
Psych (Inpt) Progress Note Progress Note GATHERING MACHINE SETTER, RN, OTR/L, Group and Activities Therapist, and Psychiatrist discussed the pt.'s progress, inpatient treatment plan, and aftercare plans. Vital Signs Date Time Temp Pulse Resp B/P B/P O2 03/15 1213 79 140/69 03/15 0802 97.7 78 116/71 03/15 0740 97.7 78 116/71 03/147 98.0 80 16 129/73 03/14 1941 98.0 80 129/73 03/14 1925 97.2 73 16 138/76 03/14 1556 73 138/76 Mental Status Evaluation: Pt. was alert and oriented to time, place, and person. He reported that he is still wishing . Denied thoughts of suicide today. He is back to having trouble with sleep interruption/falling back asleep. Mood is "very depressed," low energy, low mood -speech is normal. His affect is full and reactive, thinking is logical. He is not psychotic and not hallucinating. Assessment Update: The patient is a 52-year-old Single White man with frequent depressive thoughts, passive thoughts of wanting to be with partner, but coping overall well and no behavioral issues on the unit. Treatment Plan Update: Change clonazepam to 1mg in AM and 1 mg at bedtime Continue Seroquel 700 mg at bedtime Continue all other medications unchanged. Reduce Seroquel to 700 mg at bedtime Continue all other medications unchanged.
[2018-03-15 12:13] VITALS: BP 140/69
--- NOTE | 2018-03-15 16:58 | SOCIAL WORKER PROG NOTE PSYCH ---
See Addendum Social Work Progress Note Progress Note This food writer met with patient. He described his mood as "not great" and complained of having racing thoughts. He denied any SI at the time of this conversation (10:55am), however reported having SI this morning and yesterday evening. Dr. Lacey joined the conversation and the patient reproted that he had not slept well last night. Dr. Lacey and the patient discussed medications, including questions and concerns. Patient was not willing to sign COURTNEY's for his girlfriend's family, however, was agreeable to signing a COURTNEY for his cousin, Bernarda, and scheduling a family meeting with her (by phone as she lives out of state). Patient also signed COURTNEY's for his psychiatrist Dr. Chery and [facility]. 1:56pm This food writer left with clinical for Ne at [facility] ([phone], ext. [phone]) . She returned the call and authorized additional days with next review due on 03/17/18. 4:54pm After being informed by the patient that he had spoken with his cousin (Bernarda Rowland) and informed her of this hospitalization, and that she could be called, this food writer left a for Ekaterina Rowland requesting a call back. A call back number was provided. 4:56pm This food writer left for [facility] ([phone]) requesting a call back in interest of making a referral. A call back number was provided.
[2018-03-15 19:53] VITALS: BP 113/74
[2018-03-16 07:43] VITALS: BP 118/68
--- NOTE | 2018-03-16 11:19 | CP SOUTH PROGRESS NOTE PSYCH ---
Psych (Inpt) Progress Note Progress Note PATHOLOGY LABORATORY AIDE, RN, OTR/L, Group and Activities Therapist, and Psychiatrist discussed the pt.'s progress, inpatient treatment plan, and aftercare plans. Vital Signs: Vital Signs Date Time Temp Pulse B/P B/P Pulse O2 FiO2 03/16 0743 97.8 74 118/68 03/15 2127 98.6 80 113/74 03/15 1953 98.6 80 113/74 03/15 1935 79 140/69 Mental Status: The pt. was alert and oriented to time, place, and person. He reported that he slept well last night. He feels slightly better but still, on-off, wishing . Denied active thoughts, plans, urges of suicide today. Mood is "depressed ," as opposed to "very depressed" yesterday. His affect is less constricted/ slightly more animated. He continued to report low energy, low motivation, low pleasure. Speech is normal. thinking is logical. He is not psychotic and not hallucinating. Assessment Update: The patient is a 52-year-old Single White Male who was admitted due to passive thoughts of wanting to be with partner, Since his admission on ..., he has been showing very slow improvement but no behavioral issues on the unit. Treatment Plan Update: Change Seroquel to 100 mg Q14:00 hours and 600 mg at bedtime Continue all other medications unchanged. Atenolol 50 MG 03/11 PO Atorvastatin Calcium 40 MG 03/11 1700 PO Clonazepam 1 MG 03/16 0800 PO 03/23 0759 Clonazepam 1 MG AT BEDTIME 03/15 2100 PO 03/22 2059 Docusate Sodium 100 MG TID 03/16 1400 PO Famotidine 20 MG DAILY 03/11 0950 PO Fluoxetine HCl 80 MG DAILY 03/11 0950 PO Gabapentin 600 MG TID 03/11 2100 PO Levothyroxine Sodium 0.05 MG DAILY AC 03/11 0958 PO Magnesium Hydroxide 30 ML AT BEDTIME PRN 03/15 1215 PO Metformin HCl 500 MG 0800,03/11 1700 PO Prazosin HCl 4 MG AT BEDTIME 03/11 2100 Quetiapine Fumarate 600 MG 03/16 PO Quetiapine Fumarate 100 MG 1500 03/16 1500 PO Temazepam 30 MG AT BEDTIME 03/12 2100 PO
--- NOTE | 2018-03-16 17:38 | SOCIAL WORKER PROG NOTE PSYCH ---
Social Work Progress Note Progress Note 11:41am This telegraphic typewriter operator chief left a vm for Bernarda Rowland in response to her vm. Efforts to reach her are being made in interest of scheduling a family meeting. This telegraphic typewriter operator chief met with patient. He reported that he did not have an SI today and described his mood as "alright, not bad" with general/overall improvement. He stated that he also slept well last night. Patient inquired about the referral to [facility] and was informed that a vm had been left for their office. He stated that he would like to keep his appointment with Dr. Chery and believes to have an appointment between 04/05 and 04/09/18. This telegraphic typewriter operator chief spoke with Kevin Toscano by phone ([phone]). During the referral process it was learned that they do not accept the patient's insurance as his Husky C is QMB. Other outpatient treatment providers will be explored.
[2018-03-16 19:58] VITALS: BP 112/70
[2018-03-17 08:03] VITALS: BP 103/53
--- NOTE | 2018-03-17 12:02 | CP SOUTH PROGRESS NOTE PSYCH ---
Psych (Inpt) Progress Note Progress Note Vital Signs: Date Time Temp Pulse B/P B/P Pulse O2 FiO2 03/17 803 97.2 79 103/53 03/16 2003 82 112/70 Mental Status: Paul was alert and oriented to time, place, and person. He reported that he slept well last night. He feels slightly better/less depressed. He has on-off wishes of . Denied active thoughts, plans, urges of suicide today. Mood is "depressed," but his affect is less constricted/slightly more animated. Paul reported that he still struggles with low energy, low motivation, low pleasure. Speech is normal. Paul's thinking is logical. He is not psychotic and not hallucinating. Assessment Update: Paul Castro is a 52-year-old Single White Male who was admitted due to passive thoughts of wanting to be with partner, Since his admission on ..., he has been showing very slow improvement but no behavioral issues on the unit. Treatment Plan Update: Start [place] 150 mg BID Continue Seroquel 100 mg Q15:00 hours and 600 mg at bedtime Continue Atenolol 50 MG 03/11 Atorvastatin Calcium 40 MG 03/11 1700 Clonazepam 1 MG 03/16 0803/23 0759 Clonazepam 1 MG AT BEDTIME 03/15 2059 Docusate Sodium 100 MG TID 03/16 1400 Famotidine 20 MG DAILY 03/11 0950 Fluoxetine HCl 80 MG DAILY 03/11 0950 Gabapentin 600 MG TID 03/11 2100 Levothyroxine Sodium 0.05 MG DAILY AC 03/11 0958 Metformin HCl 500 MG 0800,03/11 1700 Prazosin HCl 4 MG AT BEDTIME 03/11 2100 Temazepam 30 MG AT BEDTIME 03/12 2100 PO Gabapentin 600 MG TID 03/11 2100 PO Levothyroxine Sodium 0.05 MG DAILY AC 03/11 0958 PO Magnesium Hydroxide 30 ML AT BEDTIME PRN 03/15 1215 PO Metformin HCl 500 MG 0800,03/11 1700 PO Prazosin HCl 4 MG AT BEDTIME 03/11 2100 Quetiapine Fumarate 600 MG 03/16 PO Quetiapine Fumarate 100 MG 1500 03/16 1500 PO Temazepam 30 MG AT BEDTIME 03/12 2100 PO
--- NOTE | 2018-03-17 17:50 | SOCIAL WORKER PROG NOTE PSYCH ---
Social Work Progress Note Progress Note This casualty underwriter met with patient. He was informed that [facility] does not accept his insurance. He stated that he spoke with [facility] previously and that they also do not accept his insurance. Patient described his mood as "not too bad" and is hopefuly about starting the [place] today. He reports that SI "comes and goes" and that he tends to experience it in the later afternoons and evenings. This casualty underwriter and patient discussed strategies to manage the SI, to which he responded that he spends time with peers on the unit. Patient stated that he is working with Dr. Lacey to adjust medications to address his symptoms, especially as they worsen later in the day. He reported his depression and anxiety both at 8/10 (with 10 being the worst). He reported that he experiences "paranoia alot" related to his childhood trauma. He also reports struggling with grief over the loss of his grilfriend and feels that individual therapy might be helpful in addressing his trauma and grief. 2:04pm This casualty underwriter spoke with Ne at [facility] ([phone], ext. [phone]) for the concurrent review. Additional days were authorized with next review due on . Ne provided providers who the patient could be referred. This casualty underwriter spoke with patient following the call with Ne. He was agreeable to a referral to [facility]. We also called his cousing, Bernarda Kashif, and a meeting has been scheduled for 10:30am tomorrow, 03/18/18.
[2018-03-17 19:26] VITALS: BP 136/70
[2018-03-18 07:49] VITALS: BP 116/64
--- NOTE | 2018-03-18 10:57 | CP SOUTH PROGRESS NOTE PSYCH ---
Psych (Inpt) Progress Note Progress Note The pt.'s progress, inpatient treatment plan, and aftercare plans were discussed in the treatment planning meeting (team members: Eli Chirinos, ESTELA, RN, OTR/L, and Psychiatrist) Mental Status: Paul was alert and oriented to time, place, and person. He reported that he slept well last night. He feels slightly better/less depressed. He has on-off wishes of . Denied active thoughts, plans, urges of suicide today. Mood is "depressed," but his affect is less constricted/slightly more animated. Paul reported that he still struggles with low energy, low motivation, low pleasure. Speech is normal. Paul's thinking is logical. He is not psychotic and not hallucinating. Assessment Update: Paul Castro is a 52-year-old Single White Male who was admitted due to passive thoughts of wanting to be with partner, Since his admission on ..., he has been showing very slow improvement but no behavioral issues on the unit. Treatment Plan Update: Increase [place] to 300 mg BID Continue all other meds unchanged Lab monitoring on Wednesday
--- NOTE | 2018-03-18 18:04 | SOCIAL WORKER PROG NOTE PSYCH ---
Social Work Progress Note Progress Note Zena Pereira (PA student) and this instructional writer met with patient. His cousin, Bernarda, attended the meeting by phone. She expressed safety concerns in reference impulsive behaviors, however, did not have any concerns that the patient would intentially harm himself. She stated that they speak regularly ( almost daily) and the patient had made comments regarding it being easier to and be with her (patient's girlfriend." She expressed concerns about the patient having minimal social contacts and would like to see him engage in more activities such as classes or attending restorationism. Anticipated discharge date was discussed as 03/21/18. Bernarda was informed that this instructional writer is exploring outpatient treatment providers and has had difficulties with identifying a provider that accepts his insurance. Bernarda stated that she hopes that the patient will be able to visit her and spend some time with her. Bernarda thanked us for the call and Patient will up Bernarda as discharge plans develop. 2:51pm This instructional writer attempted to reach [facility] again to follow up on the previous vm from yesterday. It was unclear if this instructional writer had received a return call from them earlier today as the caller did not identify where they were calling from and the call back number was difficult to understand.
[2018-03-18 19:33] VITALS: BP 113/78
[2018-03-19 07:37] VITALS: BP 106/67
--- NOTE | 2018-03-19 11:36 | CP SOUTH PROGRESS NOTE PSYCH ---
Psych (Inpt) Progress Note Progress Note Pt notes that his sleep was quite poor overnight. Does not want changes made. Plans to spend much of day in bed. Denies SI or HI. Current Medications Sig/Hillary Start time Last Medication Dose Route Stop Time Status Admin Acetaminophen 650 MG .STK-MED ONE 03/18 2143 DC PO 03/18 2144 Acetaminophen 650 MG Q4P PRN 03/15 1215 AC 03/19 PO 0446 Al Hydroxide/Mg 30 ML Q4-6 PRN PRN 03/15 1215 AC Hydroxide PO Aspirin 81 MG DAILY 03/11 0951 AC 03/19 PO 0826 Atenolol 50 MG 03/11 AC 03/18 PO 2044 Atorvastatin Calcium 40 MG 17003/11 1700 AC 03/18 PO 1637 Clonazepam 1 MG 03/16 0800 AC 03/19 PO 03/23 0759 0827 Clonazepam 1 MG AT BEDTIME 03/15 2100 AC 03/18 PO 03/22 2059 204 Docusate Sodium 100 MG TID 03/16 1400 AC 03/19 PO 0826 Famotidine 20 MG DAILY 03/11 0950 AC 03/19 PO 0827 Fluoxetine HCl 80 MG DAILY 03/11 0950 AC 03/19 PO 0826 Gabapentin 600 MG TID 03/11 2100 AC 03/19 PO 0827 Levothyroxine Sodium 0.05 MG DAILY AC 03/11 0958 AC 03/19 PO 0649 [place] Carbonate 300 MG BID 03/18 09 AC 03/19 PO 0826 Magnesium Hydroxide 30 ML AT BEDTIME PRN 03/15 1215 AC 03/17 PO 1131 Metformin HCl 500 MG 0800,03/11 1700 AC 03/19 PO 0826 Prazosin HCl 4 MG AT BEDTIME 03/11 2100 AC 03/18 PO 2044 Quetiapine Fumarate 600 MG 03/16 AC 03/18 PO 2142 Quetiapine Fumarate 100 MG 1500 03/16 1500 AC 03/17 PO 1500 Temazepam 30 MG AT BEDTIME 03/12 2100 AC 03/18 PO 2222 Vital Signs Date Time Temp Pulse Resp B/P B/P Pulse O2 O2 Flow FiO2 Mean Ox Delivery Rate 03/19 737 96.6 63 106/67 03/18 2044 84 113/78 03/18 2044 84 113/78 03/18 1933 99.7 84 113/78 MSE Appearance: as stated age Speech : nl rate, rhythm, volume and prosody Behavior: cooperative Motor: + psychomotor retardation Mood : not good Affect : flat, non-labile, irritable, appropriate, constricted Thought process: linear and goal directed Thought content : no delusions or paranoia Perceptions: denied AVHs, denied SI or HI Insight: poor Judgment: poor A/P: Pt with MDD and hx of AUD now with improved mood though continues struggles with sleep. - Continue current medication regimen
[2018-03-19 19:54] VITALS: BP 142/82
[2018-03-20 08:22] VITALS: BP 104/47
--- NOTE | 2018-03-20 12:23 | CP SOUTH PROGRESS NOTE PSYCH ---
Psych (Inpt) Progress Note Progress Note Pt notes ongoing tooth pain. Does have appt to get pulled next next week. Denies SI or HI. Current Medications Sig/Hillary Start time Last Medication Dose Route Stop Time Status Admin Acetaminophen 650 MG .STK-MED ONE 03/19 1844 DC PO 03/19 184 Acetaminophen 650 MG Q4P PRN 03/15 1215 AC 03/20 PO 0829 Al Hydroxide/Mg 30 ML Q4-6 PRN PRN 03/15 1215 AC Hydroxide PO Aspirin 81 MG DAILY 03/11 0951 AC 03/20 PO 0827 Atenolol 50 MG 03/11 AC 03/19 PO 8 Atorvastatin Calcium 40 MG 03/11 1700 AC 03/19 PO 1652 Benzocaine 1 TAMMY Q4P PRN 03/19 204 AC 03/20 TOP 0552 Clonazepam 1 MG 03/16 08 AC 03/20 PO 03/23 0759 0829 Clonazepam 1 MG AT BEDTIME 03/15 2100 AC 03/19 PO 03/22 Docusate Sodium 100 MG TID 03/16 1400 AC 03/20 PO 0827 Famotidine 20 MG DAILY 03/11 0950 AC 03/20 PO 0827 Fluoxetine HCl 80 MG DAILY 03/11 0950 AC 03/20 PO 0827 Gabapentin 600 MG TID 03/11 2100 AC 03/20 PO 0827 Levothyroxine Sodium 0.05 MG DAILY 03/11 0958 AC 03/20 PO 0552 [place] Carbonate 300 MG BID 03/18 09 AC 03/20 PO 0827 Magnesium Hydroxide 30 ML AT BEDTIME PRN 03/15 1215 AC 03/17 PO 1131 Metformin HCl 500 MG 799,03/11 1700 AC 03/20 PO 0827 Prazosin HCl 4 MG AT BEDTIME 03/11 2100 AC 03/19 PO 2128 Quetiapine Fumarate 600 MG 03/16 AC 03/19 PO 2128 Quetiapine Fumarate 100 MG 1500 03/16 1500 AC 03/17 PO 1500 Temazepam 30 MG AT BEDTIME 03/12 2100 AC 03/19 PO 2213 Tramadol HCl 50 MG Q8P PRN 03/20 1230 UNVr PO 03/21 0900 Vital Signs Date Time Temp Pulse Resp B/P B/P Pulse O2 O2 Flow FiO2 Mean Ox Delivery Rate 03/20 822 96.7 68 104/47 03/19 2128 82 142/82 03/19 2128 82 142/82 03/19 1954 99.1 82 142/82 MSE Appearance: as stated age Speech : nl rate, rhythm, volume and prosody Behavior: cooperative Motor: + psychomotor retardation Mood : my tooth Affect : flat, non-labile, irritable, appropriate, constricted Thought process: linear and goal directed Thought content : no delusions or paranoia Perceptions: denied AVHs, denied SI or HI Insight: poor Judgment: poor A/P: Pt with MDD and hx of AUD now with improved mood though continues struggles with sleep. - Continue current medication regimen except added tramadol 50mg q8P for next 24hrs
[2018-03-20 20:02] VITALS: BP 136/72
[2018-03-21 08:02] VITALS: BP 93/56
[2018-03-21 08:04] LABS: LITHIUM 0.3 mmol/L (0.6-1.2)
--- NOTE | 2018-03-21 08:28 | CP SOUTH PROGRESS NOTE PSYCH ---
Psych (Inpt) Progress Note Progress Note I reviewed Dr. Puga's notes for the weekend of March 19 and 2017. The pt.'s progress, inpatient treatment plan, and aftercare plans were discussed in the treatment planning meeting (team members: Eli Chirinos LCSW; Darlene Giron, RN; OTR/L, and Psychiatrist) Mental Status: Paul reported that he does not feel ready for discharge because he was still having "dark, negative thoughts over the weekend" (i.e. on-off wishes of and thoughts of suicide, but denied active plans or intent, "I feel safe here"). He was alert and oriented to time, place, and person. He reported that he slept well last night. Mood is still "depressed," but his affect is less constricted/ slightly more animated. Paul reported that he still struggles with low energy, low motivation, low pleasure. Speech is normal. Paul's thinking is logical. He does not have delusions, thought doisorder, and not hallucinating. Assessment Update: Paul Castro is a 52-year-old Single White Male who was admitted due to passive thoughts of wanting to be with his girlfriend. Since his admission on 03/11/2018, he has been showing very slow improvement and no behavioral issues on the unit. He continues to claim episodic wishes of and thoughts of suicide Treatment Plan Update: Increase [place] to 300 mg BID Continue all other meds unchanged
--- NOTE | 2018-03-21 15:24 | SOCIAL WORKER PROG NOTE PSYCH ---
Social Work Progress Note Progress Note 3:15pm: This promotion writer left verónica Olivia at [facility] ([phone], ext. [phone]) for the concurrent review, requesting ongoing authorization for inpatient stay.
--- NOTE | 2018-03-21 17:53 | SOCIAL WORKER PROG NOTE PSYCH ---
Social Work Progress Note Progress Note This health science writer joined the conversation between Dr. Lacey and the patient.
[2018-03-21 19:23] VITALS: BP 128/62
[2018-03-22 07:34] VITALS: BP 107/68
--- NOTE | 2018-03-22 09:10 | CP SOUTH PROGRESS NOTE PSYCH ---
Psych (Inpt) Progress Note Progress Note The pt.'s progress, inpatient treatment plan, and aftercare plans were discussed in the treatment planning meeting (team members: Eli Chirinos LCSW; Darlene Giron, RN; OTR/L, and Psychiatrist) Vital Signs Date Time Temp Pulse Resp B/P 03/22 0734 96.0 73 107/68 03/21 2129 99.3 84 16 128/62 Mental Status: Paul continues to bargain for more time but seems very much at home in inpatient settings (this may have been his 11th inpatient psychiatric admission). Denied thoughts of suicde, still vague and evasive about his claims of "dark, negative thoughts" about wishing (this part may be embellished, exaggerated/malingered to bargain for more time). He was alert and oriented to time, place, and person. He reported that he slept well last night. Mood is still "depressed," but his affect is less constricted/ slightly more animated. Paul reported that he still struggles with low energy, low motivation, low pleasure. Speech is normal. Paul's thinking is logical. He does not have delusions, thought doisorder, and not hallucinating. Assessment Update: Paul Castro is a 52-year-old Single White Male who was admitted due to passive thoughts of wanting to be with his girlfriend. Since his admission on 03/11/2018, he has been showing very slow improvement and no behavioral issues on the unit. He continues to claim episodic wishes of but has denied thoughts of suicide yesterday and today. Treatment Plan Update: D/C Home to follow up with OPS
[2018-03-22] MEDS ORDERED: TRAMADOL HCL50 M1 PO (11:44)
[2018-03-22] MEDS ORDERED: DOCUSATE SODIU100 M3 PO (11:47)
[2018-03-22] MEDS ORDERED: CLONAZEPAM0.5 M2 PO (11:48)
[2018-03-22] MEDS ORDERED: QUETIAPINE FUM300 M1 PO (11:51)
[2018-03-22] MEDS ORDERED: LITHIUM CARBON450 M1 PO (11:53)
--- NOTE | 2018-03-22 11:54 | Patient Discharge Instructions ---
Psych Discharge Inst General Discharge Information Reason for Admission: thoughts of suicide Psy Discharge Primary Diag+ Unspecified Depressive DO Psy Discharge Secondary Diag+ Obsessive Compulsive DO Summary Tests/Major Procedures Lab Hct 39.8 % L 03/10/182139 Hgb 13.1 G/DL L 03/10/182139 Studies Pending at DC: none Patient Instructions Contact Information Your Psychiatrist on [facility] was Miguel Lacey MD * If you are experiencing an emergency related to this hospitalization, please call [phone] to contact the treating psychiatrist or the psychiatrist-on- call. * To Request a copy of your medical records, please contact the Medical Records Department at [phone]. * To request results of studies pending at the time of discharge, please call [phone]. * Continue your Medications until directed to stop by your Healthcare provider. General Medication Information Please continue to take your new medications and your continued home medications , unless otherwise indicated on your discharge medication list, or unless directed by your MD or APPOINTMENT COORDINATOR to stop them. Special Instructions Diet Diabetic Activity Normal - Tobacco Use Treatment Offered Post DC Medications Offered: Refused Tob Medication Tx Post DC Tobacco Treatment Plan: Refused Tobacco Tx Pgm - EtOH/Drug Use D/O Treatment Offered Post DC Medications Offered: NA-No EtOH/Drug Use D/O Post DC EtOH/SubAbuse [place] Plan: NA-No EtOH/Drug Use D/O Advance Directives Does the Patient have Medical Advance Directives No/Refused further info Does Pt have Psychiatric Advance Directives? No/Refused further info Does Patient have a Designated Surrogate Decision Maker: No Information About Psychiatric Advance Directives Provided? Refused Discharge Plan Post Hospital Treatment Plan: [facility]
[2018-03-22] MEDS ORDERED: CLONAZEPAM1 M2 PO (11:56)
[2018-03-22] MEDS ORDERED: GLUCOPHAGE500 M1 PO (11:56)
[2018-03-22] MEDS ORDERED: SEROQUEL400 M1 PO (11:57)
--- NOTE | 2018-03-22 12:22 | DISCHARGE SUMMARY REPORT-PSYCH ---
Visit Information Visit Dates/Diagnosis' Admission Date: 03/11/18 Discharge Date: 03/22/18 Reason for Admission: thoughts of suicide Psy Discharge Primary Diag: Unspecified Depressive DO Psy Discharge Secondary Diag: Obsessive Compulsive DO Hospital Course Significant Lab Findings: Lab Cholesterol 175 MG/DL 03/12/18 0620 Cholesterol/HDL Ratio 5 % H 03/12/18 0620 HDL Cholesterol 37 mg/dL L 03/12/18 0620 Hemoglobin A1c 6.2 % H 03/12/18 0620 LDL Cholesterol, Calc 107 mg/dL 03/12/18 0620 TSH 6.480 uIU/mL H 03/21/18 0600 Thyroxine (T4) 4.3 ug/dL L 03/12/18 0620 Triglycerides 159 mg/dL H 03/12/18 0620 Course Complications: Patient did not have any complications while he was on the inpatient psychiatric unit. Consultations: Patient had a history and physical examination while he was on the inpatient psychiatric unit. Please refer to the patient's electronic health record for the details of the H&P. Allergies: Coded Allergies: No Known Allergies (03/10/18) Hospital Course/TX Response: 03/11/2018: Impression and Plan: 52-year-old single white male who was admitted because of increasing depression and thoughts of suicide. - Include all active medical diagnosis that require tx DSM 5 Diagnosis(es): Unspecified depressive disorder Obsessive-compulsive disorder Posttraumatic stress disorder Alcohol use disorder - Initial Tx Plan for Active Psych & Medical Conditions Treatment Plan: Inpatient psychiatric care with safety checks every 15 minutes Resume all medications as per his outpatient providers at [facility] intensive outpatient program. 03/12/2018: Dr. Mcfarlane's Assessment: 52-year old man with depressive sx, recent loss of partner, significant alcohol use, appears to be improving clinically. - T4 marginally below cutoff at 4.3, does not appear to merit med change acutely , can follow up with putty glazer or PCP. - continue current medication doses - provided education/support regarding ongoing weight loss and dietary changes to reduce DM risk. Over the next several days, the patient's treatment plan remained mostly unchanged, with changes only in the scheduling and dosing of Klonopin. There was also gradual reductions in the dose of Seroquel. The patient tolerated the changes very well. The patient's report of passive wishes of as well as on and off thoughts of suicide was thought to be mostly malingered with the patient's intention being to prolong his hospitalization as long as possible. The day of discharge was 03/22/2018 The patient's mental Status: Paul continues to bargain for more time but seems very much at home in inpatient settings (this may have been his 11th inpatient psychiatric admission). Denied thoughts of suicde, still vague and evasive about his claims of "dark, negative thoughts" about wishing (this part may be embellished, exaggerated/ malingered to bargain for more time). He was alert and oriented to time, place, and person. He reported that he slept well last night. Mood is still "depressed," but his affect is less constricted/ slightly more animated. Paul reported that he still struggles with low energy, low motivation, low pleasure. Speech is normal. Paul's thinking is logical. He does not have delusions, thought doisorder, and not hallucinating. Assessment Update: Paul Castro is a 52-year-old Single White Male who was admitted due to passive thoughts of wanting to be with his girlfriend. Since his admission on 03/11/2018, he has been showing very slow improvement and no behavioral issues on the unit. He continues to claim episodic wishes of but has denied thoughts of suicide yesterday and today. Treatment Plan Update: D/C Home to follow up with OPS Discharge HBIPS - Tobacco Use Treatment Offered Post DC Medications Offered: Refused Tob Medication Tx Post DC Tobacco Treatment Plan: Refused Tobacco Tx Pgm - EtOH/Drug Use D/O Treatment Offered Post DC Medications Offered: NA-No EtOH/Drug Use D/O Post DC EtOH/SubAbuse TX Plan: NA-No EtOH/Drug Use D/O Metabolic Screening - Screen if on a Neuroleptic Medication - Metabolic screening should include: - Blood Pressure, BMI, Glucose or Hgb A1c, & a - Lipid profile from within the past 365 days. Metabolic Screening Patient on a neuroleptic(s) . Enter below results for Hemoglobin A1C, and lipid panel if obtained during the last 365 days. BMI: 36.000 Blood Pressure: 107/68 Laboratory Results From [facility] (If applicable): Lab Cholesterol 175 MG/DL 03/12/18 0620 Cholesterol/HDL Ratio 5 % H 03/12/18 0620 HDL Cholesterol 37 mg/dL L 03/12/18 0620 Hemoglobin A1c 6.2 % H 03/12/18 0620 LDL Cholesterol, Calc 107 mg/dL 03/12/18 06 TSH 6.480 uIU/mL H 03/21/18 0600 Thyroxine (T4) 4.3 ug/dL L 03/12/18 0620 Triglycerides 159 mg/dL H 03/12/18 0620 Discharge Instructions General Discharge Information Multiple Neuroleptics: Not Applicable Discharge Diet Diabetic Discharge Activity Normal DC Disposition: Home Referrals Ordered Referrals Outpatient Psychiatry 03/29/18 248/250 [place], [place] [id number] [address] [phone] Intake appointment: 03/29/18, at 12:30pm with Cecilia Mane LCSW Outpatient Psychiatry 05/03/18 248/250 [place], [place] [id number] [address] [phone] Medication evaluation: 05/03/18, at 1pm with Dr. Mercedes Provider Referral For Groups: [[facility] [address] [phone] Patient is currently on their wait list and will be contacted for an appointment. Patient may follow up as well. Prescriptions Stop taking the following medications: Metformin HCl (Metformin HCl) 500 MG TABLET ORAL Every Morning Continue taking these medications: Atenolol (Atenolol) 50 MG TABLET 1 Tablet ORAL TAKE AT BEDTIME Comments: Last Taken:03/21/18 Time:9:30PM Prazosin HCl (Prazosin HCl) 2 MG CAPSULE 2 Capsule ORAL TAKE AT BEDTIME Comments: Last Taken:03/21/18 Time:9:30 Temazepam (Restoril) 30 MG CAPSULE 1 Capsule ORAL TAKE AT BEDTIME Comments: Last Taken:03/21/18 Time:10PM Gabapentin (Gabapentin) 600 MG TABLET 1 Tablet ORAL THREE TIMES DAILY Comments: Last Taken:03/22/18 Time:8AM Fluoxetine HCl (Fluoxetine HCl) 40 MG CAPSULE 2 Capsule ORAL Every Morning Comments: Last Taken:03/22/18 Time:8AM Levothyroxine Sodium (Levoxyl) 50 MCG TABLET 1 Tablet ORAL DAILY BEFORE BREAKFAST Comments: Last Taken:03/22/18 Time:7AM Atorvastatin Calcium (Lipitor) 40 MG TABLET 1 Tablet ORAL Every night Comments: Last Taken:03/21/18 Time:5PM Aspirin (Ecotrin*) 81 MG TABLET.DR 1 Tablet ORAL Every Morning Comments: Last Taken:03/22/18 Time:8AM Start taking the following new medications: Tramadol HCl (Tramadol HCl) 50 MG TABLET 50 Milligram ORAL EVERY 8 HOURS NEEDED as needed for tooth pain Qty = 21 No Refills Comments: Last Taken:03/22/18 Time:9AM Docusate Sodium (Docusate Sodium) 100 MG CAPSULE 100 Milligram ORAL THREE TIMES DAILY Qty = 45 No Refills Comments: Last Taken:03/22/18 Time:8AM Metformin Hydochloride (Glucophage) 500 MG TABLET 500 Milligram ORAL 0800,1700 Qty = 60 No Refills Comments: Last Taken:03/22/18 Time:8AM Famotidine (Famotidine) 20 MG TABLET 20 Milligram ORAL DAILY Qty = 30 Refills = 2 Comments: Last Taken:03/22/18 Time:8AM [place] Carbonate ([place] Carbonate ER) 450 MG TABLET.ER 1 Tablet ORAL TWICE DAILY Qty = 60 Refills = 2 Comments: Last Taken:03/22/18 Time:8AM The following medications have been changed: Old: Quetiapine Fumarate (Seroquel) 400 MG TABLET 2 Tablet ORAL TAKE AT BEDTIME New: Quetiapine Fumarate (Seroquel) 400 MG TABLET 1.5 Tablet ORAL TAKE AT BEDTIME Qty = 1 Comments: Last Taken:03/21/18 Time:9:30 Old: Clonazepam (Clonazepam) 1 MG TABLET 1 Tablet ORAL TWICE DAILY New: Clonazepam (Clonazepam) 1 MG TABLET 1 Tablet ORAL SEE INSTRUCTIONS Qty = 1 Instructions: 1/2 tab in AM and 1 tab at bedtime Comments: Last Taken:03/22/18 Time:8AM Studies Pending at Discharge none Copies To: Patricia Bauman LCSW
[2018-03-22] MEDS ORDERED: FAMOTIDINE20 M1 PO (14:07)
--- NOTE | 2018-03-22 17:29 | SOCIAL WORKER PROG NOTE PSYCH ---
See Addendum Social Work Progress Note Progress Note This medical underwriter called the following clinicians (names provided by his insurance company): - Portia Don LCSW ([phone]) with [facility]. Maddison (office 365 consultant) returned the call and stated that Portia is no longer accepting Medicare. Patient was informed of the out of pocket fee ($60-$70), which he stated that he cannot afford -Som Naidu LCSW: vm left at 10:20am ([phone]) -Portia Dubon LCSW: not providing individual therapy -[facility]: this medical underwriter spoke with Sadaf at 11:10am. Patient is placed on their wait list anticipating an opening in June, however, appointment cannot be made at this time and patient will be contacted. Patient may also follow up This medical underwriter met with patient. Patient was offered an intake with [facility] for tomorrow at 1:15pm, however, declined due to travel time and distance. He identified barriers related to travel/transportation regardless of when the IOP intake or groups would meet. Due to unsuccessful attempts to identify an individual therapist close to patient's home, patient requested a referral to OPS. He will speak with the site project manager about outpatient group therapy that is offered. He accepted the intake for 03/29/18 at 12:30pm with Cecilia Smith LCSW and the medication evaluation with Dr. Mercedes on 05/03/18 at 1pm. Patient was informed that he must attend the intake appointment in order to keep the appointment with Dr. Mercedes. He agreed and will contact the OPS office if there is a conflict with the appointment(s). Patient denied SI/HI/hallucinations and felt safe discharging today. He identified a safety plan to "come back here" and accepted the crisis numbers and warm lines upon discharge. He stated that he did not need any additional referrals or appointments. A Lyft ride was scheduled for the patient for transportation home today. Faxed Referral(s) Referred To: OPS Transition of Care Documents sent: Health Summary Faxed to: OPS Fax #: [phone] Faxed by: Daryn Chirinos LCSW Date faxed: 03/22/18 Time Faxed: [phone]
--- NOTE | 2018-03-23 09:11 | SOCIAL WORKER PROG NOTE PSYCH ---
Social Work Progress Note Progress Note 9:10am This database report writer spoke with Ne at [facility] ([phone], ext. [phone]) for discharge clinical.
== END 2018-03-22 15:06 | DRG 881 ==
LOC: ERH 20:52 → CP SOUTH 03-11 11:21 → ERHI 03-11 11:21 → ENTRNSPT 03-11 11:36 → EDTRNSPT 03-11 11:46 → EDTRNSPTSTS 03-11 11:46 → CMPTRNSPT 03-11 12:07 → CP SOUTH 03-11 12:19
PROVIDERS: Physician Assistant Medical; Psychiatry & Neurology Psychiatry
DX: F32.9 Major depressive disorder, single episode, unspecified (principal); F42.9 Obsessive-compulsive disorder, unspecified
CPT/HCPCS: 36415; 74177; 80307; 81003; 93005; 93010; 96374; 96375; 96376; G0480; J0131; J1885; J2765; J3490